=== PATIENT | female | born 1995 | race Caucasian/White ===

== ENCOUNTER 2017-12-01 18:52 | Inpatient (IN) | payer OTHER ==
[~2017-12-01] VITALS: Ht 167.6 cm; Wt 72.6 kg
[2017-12-01] MEDS ORDERED: ONDANSETRON 4 MG/2 ML VIAL IM PRN (23:15)
[2017-12-01] MEDS ORDERED: DICYCLOMINE HCL 20 MG TABLET PO PRN (23:15)
[2017-12-01] MEDS ORDERED: MAG HYDROX/AL HYDROX/SIMETH 30 ML LIQUID UDC PO PRN (23:15)
[2017-12-01] MEDS ORDERED: ACETAMINOPHEN 325 MG TABLET PO PRN (23:15)
[2017-12-01] MEDS ORDERED: LOPERAMIDE HCL 2 MG CAPSULE PO PRN ×2 (23:15)
[2017-12-01] MEDS ORDERED: MAGNESIUM HYDROXIDE 30 ML LIQUID UDC PO PRN (23:15)
[2017-12-01] MEDS ORDERED: BUPRENORPHINE HCL 2 MG TAB.SUBL SL PRN (23:15)
[2017-12-01] MEDS ORDERED: LORAZEPAM 1 MG TABLET PO PRN (23:15)
[2017-12-01 23:40] VITALS: BP 127/74
[2017-12-02] VITALS (7 sets, daily range): BP systolic 90–116; BP diastolic 35–68
[2017-12-02 00:55] LABS: *URINE HCG, QUAL NEGATIVE (NEGATIVE)
[2017-12-02 01:02] LABS: *AMPHETAMINE, URINE POSITIVE (NEGATIVE); *BARBITURATE, URINE NEGATIVE (NEGATIVE); *CANNABINOID, URINE NEGATIVE (NEGATIVE); *COCCAINE, URINE NEGATIVE (NEGATIVE); *OPIATE, URINE POSITIVE (NEGATIVE); *PHENCYCLIDINE SCREEN,URINE NEGATIVE (NEGATIVE)
[2017-12-02] MEDS: METHOCARBAMOL 750 MG TABLET PO PRN (01:08)
[2017-12-02] MEDS: diphenhydrAMINE 50 MG CAPSULE PO PRN (01:08)
[2017-12-02] MEDS: ONDANSETRON ODT 4 MG TAB.RAPDIS SL PRN (01:58)
[2017-12-02] MEDS: IBUPROFEN 600 MG TABLET PO PRN ×2 (01:58→20:58)
[2017-12-02] MEDS ORDERED: TRAZ-147 PO (03:22)
[2017-12-02 08:07] LABS: BASOPHILS # (AUTO) 0.1 K/uL (0.0-8.0); BASOPHILS % (AUTO) 0.8 % (0.0-2.0); EOSINOPHILS # (AUTO) 0.2 K/uL (0.0-0.7); EOSINOPHILS % (AUTO) 3.3 % (0.0-7.0); HEMATOCRIT 34.1 % (31.2-41.9); HEMOGLOBIN 11.4 g/dL (10.9-14.3); LYMPHOCYTES % (AUTO) 27.4 % (20.5-74.5); MEAN CORPUSCULAR HEMOGLOBIN 27.6 uug (24.7-32.8); MEAN CORPUSCULAR HGB CONC 33 g/dL (32.3-35.6); MEAN CORPUSCULAR VOLUME 82.7 fL (75.5-95.3); MONOCYTES # (AUTO) 0.4 K/uL (2.0-10.0); MONOCYTES % (AUTO) 6.1 % (0-11); NEUTROPHILS # (AUTO) 4.5 K/uL (1.8-8.9); NEUTROPHILS % (AUTO) 62.4 % (31.5-64.5); PLATELET COUNT (AUTO) 356 K/uL (179-408); RED BLOOD CELL COUNT(AUTO) 4.12 MIL/uL (3.63-4.92); WHITE BLOOD COUNT (AUTO) 7.3 K/uL (3.8-11.8)
[2017-12-02 08:22] LABS: ALANINE AMINOTRANSFERASE 46 U/L (14-59); ALKALINE PHOSPHATASE 107 U/L (50-136); ASPARTATE AMINOTRANSFERASE 25 U/L (15-37); BILIRUBIN,TOTAL 0.3 mg/dL (0.2-1.0); CARBON DIOXIDE 29 mmol/L (21-32); CHLORIDE 100 mmol/L (98-107); CREATININE 0.7 mg/dL (0.6-1.3); GLUCOSE 91 mg/dL (74-106); POTASSIUM 3.7 mmol/L (3.5-5.1); TOTAL PROTEIN, SERUM 7.2 g/dL (6.4-8.2); UREA NITROGEN, BLOOD 11 mg/dL (7-18)
[2017-12-02 08:31] LABS: ETHANOL < 3 MG/DL (0-0)
[2017-12-02] MEDS ORDERED: BUPRENORPHINE HCL 2 MG TAB.SUBL SL SCH (09:00)
[2017-12-02] MEDS ORDERED: TUBERCULIN,PURIF.PROT.DERIV. 5 TU/0.1 ML TEST ID ONE (09:00)
[2017-12-02] MEDS ORDERED: LORAZEPAM 1 MG TABLET PO PRN ×2 (11:30)
[2017-12-02] MEDS ORDERED: NICOTINE POLACRILEX 4 MG GUM-PK OF TEN BC PRN (11:30)
[2017-12-02] MEDS ORDERED: NICOTINE 14 MG/24HR PATCH TD PRN (11:30)
[2017-12-02] MEDS ORDERED: LORAZEPAM 2 MG/1 ML VIAL IM PRN (11:30)
[2017-12-02] MEDS: BUPRENORPHINE HCL 2 MG TAB.SUBL SL SCH ×3 (13:00→21:00)
[2017-12-02] MEDS: LORAZEPAM 1 MG TABLET PO SCH ×3 (13:24→20:58)
[2017-12-02] MEDS: CEPHALEXIN MONOHYDRATE 250 MG CAPSULE PO SCH ×2 (15:34→20:58)
[2017-12-02] MEDS: GABAPENTIN 300 MG CAPSULE PO SCH (20:58)
[2017-12-02] MEDS: LACTOBACILLUS RHAMNOSUS GG 1 EACH CAPSULE PO SCH (20:58)
[2017-12-02] MEDS: TRAZODONE 100 MG TABLET PO SCH (20:59)
[2017-12-03] VITALS: BP 96/46
[2017-12-03 04:00] VITALS: BP 98/42
[2017-12-03 08:00] VITALS: BP 105/60
[2017-12-03] MEDS: LORAZEPAM 1 MG TABLET PO SCH ×3 (08:49→21:02)
[2017-12-03] MEDS: LACTOBACILLUS RHAMNOSUS GG 1 EACH CAPSULE PO SCH ×2 (08:49→21:03)
[2017-12-03] MEDS: CEPHALEXIN MONOHYDRATE 250 MG CAPSULE PO SCH ×3 (08:49→21:04)
[2017-12-03] MEDS: GABAPENTIN 300 MG CAPSULE PO SCH ×3 (08:49→21:03)
[2017-12-03] MEDS: BUPRENORPHINE HCL 2 MG TAB.SUBL SL SCH ×3 (08:50→21:01)
[2017-12-03] MEDS ORDERED: BUPRENORPHINE HCL 2 MG TAB.SUBL SL SCH ×2 (09:00→15:00)
[2017-12-03] MEDS: CLONIDINE HCL 0.1 MG TABLET PO PRN (09:39)
[2017-12-03 10:07] LABS: HEPATITIS B SURFACE AG Negative (Negative)
[2017-12-03] MEDS: ONDANSETRON ODT 4 MG TAB.RAPDIS SL PRN ×2 (11:29→21:03)
[2017-12-03 12:00] VITALS: BP 95/43
[2017-12-03] MEDS ORDERED: KETOROLAC TROMETHAMINE 30 MG INJ IM PRN (12:00)
[2017-12-03] MEDS: MIRALAX 17 GM POWD.PACK PO PRN (14:20)
[2017-12-03 16:00] VITALS: BP 96/38
[2017-12-03 20:00] VITALS: BP 110/50
[2017-12-03] MEDS: HYDROXYZINE PAMOATE 25 MG CAPSULE PO PRN (21:02)
[2017-12-03] MEDS: METHOCARBAMOL 750 MG TABLET PO PRN (21:02)
[2017-12-03] MEDS: diphenhydrAMINE 50 MG CAPSULE PO PRN (21:02)
[2017-12-03] MEDS: BACLOFEN 10 MG TABLET PO SCH (21:03)
[2017-12-03] MEDS: TRAZODONE 100 MG TABLET PO SCH (21:03)
[2017-12-03] MEDS: CLONIDINE HCL 0.1 MG TABLET PO SCH (21:03)
[2017-12-04 08:00] VITALS: BP 107/59
[2017-12-04] MEDS: CLONIDINE HCL 0.1 MG TABLET PO SCH ×2 (08:19→21:38)
[2017-12-04] MEDS: BACLOFEN 10 MG TABLET PO SCH ×3 (08:19→21:38)
[2017-12-04] MEDS: GABAPENTIN 300 MG CAPSULE PO SCH ×3 (08:19→21:38)
[2017-12-04] MEDS: LACTOBACILLUS RHAMNOSUS GG 1 EACH CAPSULE PO SCH ×2 (08:19→21:37)
[2017-12-04] MEDS: CEPHALEXIN MONOHYDRATE 250 MG CAPSULE PO SCH ×3 (08:20→21:46)
[2017-12-04] MEDS ORDERED: BUPRENORPHINE HCL 2 MG TAB.SUBL SL SCH ×2 (09:00)
[2017-12-04] MEDS ORDERED: LORAZEPAM 1 MG TABLET PO SCH ×2 (09:00→21:00)
[2017-12-04] MEDS: MIRALAX 17 GM POWD.PACK PO PRN (09:45)
[2017-12-04] MEDS: ONDANSETRON ODT 4 MG TAB.RAPDIS SL PRN ×2 (09:46→21:46)
[2017-12-04 12:00] VITALS: BP 96/50
[2017-12-04] MEDS: LIDOCAINE 5% PATCH TD SCH (12:09)
[2017-12-04] MEDS: LORAZEPAM 1 MG TABLET PO SCH ×2 (12:09→16:49)
[2017-12-04] MEDS: CLONIDINE HCL 0.1 MG TABLET PO PRN (14:37)
[2017-12-04] MEDS: BUPRENORPHINE HCL 2 MG TAB.SUBL SL SCH ×2 (14:37→21:37)
[2017-12-04 16:00] VITALS: BP 102/50
[2017-12-04 20:00] VITALS: BP 115/80
[2017-12-04] MEDS: HYDROXYZINE PAMOATE 25 MG CAPSULE PO PRN (21:37)
[2017-12-04] MEDS: TRAZODONE 100 MG TABLET PO SCH (21:37)
[2017-12-05 08:00] VITALS: BP 92/50
[2017-12-05] MEDS ORDERED: BUPRENORPHINE HCL 2 MG TAB.SUBL SL SCH (09:00)
[2017-12-05] MEDS: LIDOCAINE 5% PATCH TD SCH ×2 (09:00→09:54)
[2017-12-05] MEDS ORDERED: LORAZEPAM 1 MG TABLET PO SCH ×3 (09:00→21:00)
[2017-12-05] MEDS: BACLOFEN 10 MG TABLET PO SCH (09:04)
[2017-12-05] MEDS: CEPHALEXIN MONOHYDRATE 250 MG CAPSULE PO SCH ×3 (09:04→21:31)
[2017-12-05] MEDS: CLONIDINE HCL 0.1 MG TABLET PO SCH ×2 (09:04→15:05)
[2017-12-05] MEDS: LACTOBACILLUS RHAMNOSUS GG 1 EACH CAPSULE PO SCH ×2 (09:04→21:32)
[2017-12-05] MEDS: BUPRENORPHINE HCL 2 MG TAB.SUBL SL SCH ×3 (09:05→21:32)
[2017-12-05] MEDS: ONDANSETRON ODT 4 MG TAB.RAPDIS SL PRN ×3 (09:05→23:17)
[2017-12-05] MEDS: GABAPENTIN 300 MG CAPSULE PO SCH ×3 (09:06→21:33)
[2017-12-05 12:00] VITALS: BP 115/66
[2017-12-05] MEDS: BACLOFEN 20 MG TABLET PO SCH ×2 (15:05→21:33)
[2017-12-05 16:00] VITALS: BP 99/58
[2017-12-05 20:00] VITALS: BP 103/50
[2017-12-05] MEDS: TRAZODONE 100 MG TABLET PO SCH (21:33)
[2017-12-05] MEDS: METHOCARBAMOL 750 MG TABLET PO PRN (21:33)
[2017-12-05] MEDS: CLONIDINE HCL 0.2 MG TABLET PO SCH (21:33)
[2017-12-05] MEDS: HYDROXYZINE PAMOATE 25 MG CAPSULE PO PRN (21:33)
[2017-12-05] MEDS: BACITRACIN/POLYMYXIN B OINT 15 GM TUBE TOP SCH (21:34)
[2017-12-05] MEDS: IBUPROFEN 600 MG TABLET PO PRN (23:17)
[2017-12-06 08:30] VITALS: BP 96/60
[2017-12-06] MEDS: CLONIDINE HCL 0.1 MG TABLET PO SCH ×2 (09:00→15:57)
[2017-12-06] MEDS: BUPRENORPHINE HCL 2 MG TAB.SUBL SL SCH ×2 (09:35→20:40)
[2017-12-06] MEDS: LACTOBACILLUS RHAMNOSUS GG 1 EACH CAPSULE PO SCH ×2 (09:35→20:37)
[2017-12-06] MEDS: LORAZEPAM 1 MG TABLET PO SCH ×2 (09:35→20:38)
[2017-12-06] MEDS: BACLOFEN 20 MG TABLET PO SCH ×3 (09:35→20:39)
[2017-12-06] MEDS: GABAPENTIN 300 MG CAPSULE PO SCH ×3 (09:35→20:38)
[2017-12-06] MEDS: CEPHALEXIN MONOHYDRATE 250 MG CAPSULE PO SCH ×3 (09:36→20:39)
[2017-12-06] MEDS: LIDOCAINE 5% PATCH TD SCH (09:36)
[2017-12-06] MEDS: BACITRACIN/POLYMYXIN B OINT 15 GM TUBE TOP SCH ×2 (09:37→20:37)
[2017-12-06 12:37] VITALS: BP 108/59
[2017-12-06] MEDS ORDERED: BACL20TA PO (14:43)
[2017-12-06] MEDS ORDERED: LIDO30AD10 TD (14:43)
[2017-12-06] MEDS ORDERED: DIPH50CA37 PO (14:43)
[2017-12-06] MEDS ORDERED: HYDR-3895 PO (14:43)
[2017-12-06] MEDS ORDERED: CLON0.1T14 PO (14:43)
[2017-12-06] MEDS ORDERED: IBUP-1955 PO (14:43)
[2017-12-06] MEDS ORDERED: GABA-534 PO ×2 (14:43)
[2017-12-06] MEDS ORDERED: CEPH250C PO (14:43)
[2017-12-06] MEDS ORDERED: LACT1CAP57 PO (14:43)
[2017-12-06] MEDS ORDERED: DICY20TA28 PO (14:43)
[2017-12-06 16:30] VITALS: BP_SYST 144; BP_SYST 92; BP_DIAS 63; BP_DIAS 67
[2017-12-06 20:00] VITALS: BP 104/62
[2017-12-06] MEDS: TRAZODONE 100 MG TABLET PO SCH (20:38)
[2017-12-06] MEDS: CLONIDINE HCL 0.2 MG TABLET PO SCH (20:38)
[2017-12-07] VITALS: BP 112/59
[2017-12-07 08:16] VITALS: BP 86/41
[2017-12-07] MEDS ORDERED: LORAZEPAM 1 MG TABLET PO SCH (09:00)
[2017-12-07] MEDS ORDERED: BUPRENORPHINE HCL 2 MG TAB.SUBL SL SCH (09:00)
[2017-12-07] MEDS: CLONIDINE HCL 0.1 MG TABLET PO SCH ×3 (09:00→14:37)
[2017-12-07] MEDS: LACTOBACILLUS RHAMNOSUS GG 1 EACH CAPSULE PO SCH (09:29)
[2017-12-07] MEDS: GABAPENTIN 300 MG CAPSULE PO SCH ×3 (09:29→21:28)
[2017-12-07] MEDS: CEPHALEXIN MONOHYDRATE 250 MG CAPSULE PO SCH (09:30)
[2017-12-07] MEDS: LIDOCAINE 5% PATCH TD SCH (09:30)
[2017-12-07] MEDS: BACITRACIN/POLYMYXIN B OINT 15 GM TUBE TOP SCH ×2 (09:30→21:28)
[2017-12-07] MEDS: BACLOFEN 20 MG TABLET PO SCH ×3 (09:30→21:27)
[2017-12-07 12:30] VITALS: BP 109/41
[2017-12-07 17:09] VITALS: BP 107/45
[2017-12-07 20:09] VITALS: BP 112/71
[2017-12-07] MEDS: TRAZODONE 100 MG TABLET PO SCH (21:27)
[2017-12-07] MEDS: CLONIDINE HCL 0.2 MG TABLET PO SCH (21:28)
[2017-12-08 00:15] VITALS: BP 114/75
[2017-12-08 04:40] VITALS: BP 112/69
[2017-12-08 08:00] VITALS: BP 110/70
[2017-12-08] MEDS: GABAPENTIN 300 MG CAPSULE PO SCH (09:00)
[2017-12-08] MEDS: BACLOFEN 20 MG TABLET PO SCH (09:00)
[2017-12-08] MEDS: HYDROXYZINE PAMOATE 25 MG CAPSULE PO PRN (09:00)
[2017-12-08 09:01] VITALS: BP 110/70
[2017-12-08] MEDS: CLONIDINE HCL 0.1 MG TABLET PO SCH (09:01)
[2017-12-08] MEDS: LIDOCAINE 5% PATCH TD SCH (09:02)
[2017-12-08] MEDS: BACITRACIN/POLYMYXIN B OINT 15 GM TUBE TOP SCH (09:02)
== END 2017-12-08 09:25 | DRG 895 ==
LOC: SRC 22:56
PROVIDERS: ADMIT Internal Medicine; ATTEND Internal Medicine
PROC: HZ2ZZZZ Detoxification Services for Substance Abuse Treatment (ICD-10-PCS; principal; 2017-12-01)
PROC: HZ31ZZZ Individual Counseling for Substance Abuse Treatment, Behavioral (ICD-10-PCS; 2017-12-03)
PROC: HZ41ZZZ Group Counseling for Substance Abuse Treatment, Behavioral (ICD-10-PCS; 2017-12-05)
DX: F13.232 Sedative, hypnotic or anxiolytic dependence with withdrawal with perceptual disturbance (principal); E87.1 Hypo-osmolality and hyponatremia; L02.413 Cutaneous abscess of right upper limb; Z81.8 Family history of other mental and behavioral disorders; F15.10 Other stimulant abuse, uncomplicated; E86.0 Dehydration; F17.210 Nicotine dependence, cigarettes, uncomplicated; Z59.0 Homelessness; F11.23 Opioid dependence with withdrawal; Z91.89 Other specified personal risk factors, not elsewhere classified; S51.031S Puncture wound without foreign body of right elbow, sequela; X78.8XXS Intentional self-harm by other sharp object, sequela; Z59.1 Inadequate housing; F41.9 Anxiety disorder, unspecified; F32.9 Major depressive disorder, single episode, unspecified; G47.00 Insomnia, unspecified
CPT/HCPCS: 36415; 70030-TC; 80307; 80324; 80361; 83735; 84703; 85025; 86580; 86592; 86705; 86803; 87340; 87806; G0480; Q0162; Q0163